=== PATIENT | male | born 1945 | race Caucasian/White ===

== ENCOUNTER 2017-06-27 09:18 | Outpatient (CLI) | payer OTHER | END 2017-06-27 09:28 | disposition home or self-care (01) | LOC: LAB 09:18 | DX: R97.20 Elevated prostate specific antigen [PSA] (principal) ==

== ENCOUNTER 2017-07-15 07:04 | Outpatient (CLI) | payer OTHER | END 2017-07-15 07:09 | disposition home or self-care (01) | LOC: SONOGRAMA 07:04 | DX: R97.20 Elevated prostate specific antigen [PSA] (principal) ==

== ENCOUNTER 2017-08-05 06:37 | Outpatient (CLI) | payer OTHER | END 2017-08-05 06:56 | disposition home or self-care (01) | LOC: EKG 06:37 | DX: C61 Malignant neoplasm of prostate (principal); Z01.810 Encounter for preprocedural cardiovascular examination ==

== ENCOUNTER 2017-08-05 06:44 | Outpatient (CLI) | payer OTHER | END 2017-08-05 06:58 | disposition home or self-care (01) | LOC: LAB 06:44 | DX: C61 Malignant neoplasm of prostate (principal) ==

== ENCOUNTER 2017-08-05 06:47 | Outpatient (CLI) | payer OTHER | END 2017-08-05 07:05 | disposition home or self-care (01) | LOC: RAD 06:47 | DX: C61 Malignant neoplasm of prostate (principal) ==

== ENCOUNTER 2017-09-08 08:00 | Inpatient (IN) | payer OTHER ==
[~2017-09-08] VITALS: Ht 170.2 cm; Wt 81.6 kg
[2017-09-08] MEDS ORDERED: METFORMIN HCL500 MG PO (09:19)
[2017-09-08] MEDS ORDERED: TRICOR145 MG PO (09:19)
[2017-09-08] MEDS ORDERED: ZOCOR20 MG PO (09:19)
[2017-09-08] MEDS ORDERED: LOSARTAN POTASS25 MG PO (09:20)
[2017-09-08] MEDS ORDERED: DOCEPIN PO (09:24)
[2017-09-08] MEDS ORDERED: HUMULIN N100 UNIT/2 (09:24)
== END 2017-09-16 11:52 | disposition home or self-care (01) | DRG 708 ==
LOC: O/R 09-14 05:43 → SURH 09-14 05:43
PROVIDERS: Urology
PROC: 07TC0ZZ Resection of Pelvis Lymphatic, Open Approach (ICD-10-PCS; 2017-09-14)
PROC: 0VT30ZZ Resection of Bilateral Seminal Vesicles, Open Approach (ICD-10-PCS; 2017-09-14)
PROC: 0VT00ZZ Resection of Prostate, Open Approach (ICD-10-PCS; principal; 2017-09-14 08:30)
DX: C61 Malignant neoplasm of prostate (principal); E11.9 Type 2 diabetes mellitus without complications; I10 Essential (primary) hypertension

== ENCOUNTER 2019-04-03 09:06 | Outpatient (CLI) | payer OTHER ==
[~2019-04-03 09:06] MED LIST: DOCEPIN PO; HUMULIN N100 UNIT/2; LOSARTAN POTASS25 MG PO; METFORMIN HCL500 MG PO; TRICOR145 MG PO; ZOCOR20 MG PO
== END 2019-04-03 15:00 | disposition home or self-care (01) ==
LOC: LAB 09:06
DX: N30.00 Acute cystitis without hematuria (principal); B96.1 Klebsiella pneumoniae [K. pneumoniae] as the cause of diseases classified elsewhere